=== PATIENT | male | born 1960 | race Caucasian/White ===

== ENCOUNTER → 2023-11-19 | Emergency (ER) | payer BC ==
[~2023-11-19] MED LIST: NA CHLORIDE 0.9% 1,000 ML ONE; NA CHLORIDE 0.9% 100 ML ONE; ONDANSETRON 4 MG/2 ML VIAL ONE; PANTOPRAZOLE 40 MG INJ ONE; PIPERACIL/TAZO 3.375 GM VIAL IV ONE
[2023-11-19 02:19] LABS: Hematocrit 43.7 % (39.6-49.0); Lymphocytes % 5.7 % (15.3-44.8); MCV 91.8 fL (80-100); MPV 9.5 fL (7.6-11.3); Platelets 178 thou/uL (152-406); RBC Red Blood Cell Count 4.76 M/uL (4.33-5.43)
[2023-11-19 02:39] LABS: Protime INR 1.07
[2023-11-19 02:40] LABS: Potassium 4.2 mEq/L (3.5-5.1); Protein, Total 7.9 g/dL (6.4-8.2)
[2023-11-19 05:17] LABS: Blood Morphology Comment NOT SEEN (NOT SEEN); Platelet Estimate ADEQ; White Blood Cell Scan OK (OK)
[2023-11-19 05:23] LABS: Arterial Blood Carboxyhemoglob 0.9 % (0-1.5); Blood Gas Oxyhemoglobin 93.6 % (94-97); Blood O2 Saturation 96.6 % (92-98.5)
[2023-11-19 05:30] LABS: Specific Gravity > 1.030 (1.005-1.030); Urine Bacteria None Seen /HPF (<20); Urine Bilirubin NEGATIVE (Negative); Urine Blood Negative (Negative); Urine Clarity Clear (Clear); Urine Color Yellow (Yellow); Urine Glucose 4+ (Over) (Negative); Urine Protein TRACE (Negative); Urine RBC <5 /HPF (None Seen); Urine Urobilinogen Normal (Normal); Urine pH 5.5 (5.0-7.0)
--- NOTE | 2023-11-19 06:50 | ER ---
Nurse's Notes [facility] Name: jJ Cedillo Age: 62 yrs Sex: Male : 1960 Arrival Date: 11/19/2023 Time: 01:16 Bed 6 Private MD: Diagnosis: Colitis;Lactic acidosis;Rectal bleeding;Acute kidney injury Presentation: 11/19 01:26 Chief complaint: Patient states: I had just eaten and I started having stabbing pains vc1 in my lower abdomen. I thought it was gas so I sat on the toilet and vomited. I then had a bowel movement that was watery when I was down there was a significant amount of blood. I do have a history of colon cancer, in remission. Coronavirus screen: Vaccine status: Patient reports receiving the 2nd dose of the covid vaccine. Client denies travel out of the [place] in the last 14 days. At this time, the client does not indicate any symptoms associated with coronavirus-19. Ebola Screen: Patient negative for fever greater than or equal to 101.5 degrees Fahrenheit, and additional compatible Ebola Virus Disease symptoms Patient denies exposure to infectious person. Patient denies travel to an Ebola-affected area in the 21 days before illness onset. No symptoms or risks identified at this time. Initial Sepsis Screen: Does the patient meet any 2 criteria? No. Patient's initial sepsis screen is negative. Does the patient have a suspected source of infection? Yes: Acute abdominal pain. Risk Assessment: Do you want to hurt yourself or someone else? Patient reports no desire to harm self or others. Onset of symptoms was November 19, 2023. 01:26 Method Of Arrival: Ambulatory vc1 01:26 Acuity: PERRY 3 vc1 Triage Assessment: 01:30 General: Appears in no apparent distress. uncomfortable, Behavior is calm, cooperative, vc1 appropriate for age. Pain: Complains of pain in right lower quadrant and left lower quadrant Pain does not radiate. Pain currently is 5 out of 10 on a pain scale. Also complains of diarrhea, blood in stool. EENT: No deficits noted. No signs and/or symptoms were reported regarding the EENT system. Neuro: Level of Consciousness is awake, alert, obeys commands, Oriented to person, place, time, situation, Appropriate for age Reports weakness shaking. Cardiovascular: No deficits noted. Respiratory: Airway is patent Respiratory effort is even, unlabored, Respiratory pattern is regular, symmetrical. GI: Reports lower abdominal pain, diarrhea, rectal bleeding, bloody stool, vomiting. : No deficits noted. No signs and/or symptoms were reported regarding the genitourinary system. Derm: No deficits noted. No signs and/or symptoms reported regarding the dermatologic system. Musculoskeletal: No deficits noted. No signs and/or symptoms reported regarding the musculoskeletal system. Historical: - Allergies: :29 No Known Allergies; vc1 - PMHx: :29 colon cancer; Hypertensive disorder; Diabetes mellitus; vc1 - PSHx: : right knee surgecy; colon resection; vc1 - Immunization history:: Client reports receiving the 2nd dose of the Covid vaccine. - Social history:: Smoking status: Patient denies any tobacco usage or history of. Screenin:32 [facility] ED Fall Risk Assessment (Adult) History of falling in the last 3 months, vc1 including since admission No falls in past 3 months (0 pts) Confusion or Disorientation No (0 pts) Intoxicated or Sedated No (0 pts) Impaired Gait No (0 pts) Mobility Assist Device Used No (0 pt) Altered Elimination Yes (1 pt) Score/Fall Risk Level 0 - 2 = Low Risk Oriented to surroundings, Maintained a safe environment, Educated pt \T\ family on fall prevention, incl call for assistance when getting out of bed. Abuse screen: Denies threats or abuse. Nutritional screening: No deficits noted. Tuberculosis screening: No symptoms or risk factors identified. Assessment: 02:46 Reassessment: Patient appears in no apparent distress at this time. Patient and/or jb4 family updated on plan of care and expected duration. Pain level reassessed. Patient is alert, oriented x 3, equal unlabored respirations, skin warm/dry/pink. Reports pain is tolerable. Pain was not alleviated by placing a ortiz. Continues to report a dull, 5/10, lower abdominal pain. Soar noted to the sacral area. Pt report it is from hitting the toilet seat. 04:00 Reassessment: Pt resting in bed with eyes closed, respirations are even and unlabored jb4 with no s/s of pain or distress noted. 04:59 Reassessment: Patient appears in no apparent distress at this time. Patient and/or jb4 family updated on plan of care and expected duration. Pain level reassessed. Patient is alert, oriented x 3, equal unlabored respirations, skin warm/dry/pink. RT at the bedside drawing ABG. 06:26 Reassessment: Pt resting in bed with eyes closed, respirations are even and unlabored jb4 with no s/s of pain or distress noted. 07:46 Reassessment: Patient appears in no apparent distress at this time. Patient and/or db family updated on plan of care and expected duration. Pain level reassessed. Pt is resting. respirations even and unlabored. In NAD. General: Appears in no apparent distress. comfortable, Behavior is calm, cooperative. Neuro: Level of Consciousness is awake, alert, obeys commands, Oriented to person, place, time, situation. Respiratory: Airway is patent Respiratory effort is even, unlabored, Respiratory pattern is regular, symmetrical. 08:55 Reassessment: Patient appears in no apparent distress at this time. Patient and/or db family updated on plan of care and expected duration. Pain level reassessed. Patient is alert, oriented x 3, equal unlabored respirations, skin warm/dry/pink. UPDATED BY PHYSICIAN ON PLAN. 09:58 Reassessment: REPORT GIVEN TO CHANELL, RN RECEIVING RN AT [facility]. PT GOING TO ROOM 734. Vital Signs: 01:26 BP 128 / 50; Pulse 86; Resp 15; Temp 97.8; Pulse Ox 100% ; Weight 89.36 kg; Height 6 vc1 ft. 0 in. ; Pain 5/10; 02:46 BP 123 / 53; Pulse 80; Resp 16; Pulse Ox 98% on R/A; jb4 04:00 BP 126 / 52; Pulse 80; Resp 16; Pulse Ox 98% on R/A; jb4 05:00 BP 124 / 49; Pulse 82; Resp 16; Pulse Ox 100% on R/A; jb4 06:27 BP 126 / 48; Pulse 80; Resp 16; Pulse Ox 99% on R/A; jb4 07:00 BP 123 / 49; Pulse 79; Resp 16; Pulse Ox 100% on R/A; db 07:30 BP 122 / 49; Pulse 79; Resp 18; Pulse Ox 99% on R/A; db 08:00 BP 122 / 46; Pulse 81; Resp 18; Pulse Ox 99% on R/A; db 08:30 BP 112 / 40; Pulse 83; Resp 16; Pulse Ox 100% on R/A; db 09:00 BP 117 / 43; Pulse 80; Resp 16; Pulse Ox 97% on R/A; db 01:26 Body Mass Index 26.72 (89.36 kg, 182.88 cm) vc1 01:26 Pain Scale: Adult vc1 ED Course: 01:21 Patient arrived in ED. gm2 01:29 Triage completed. vc1 01:30 Arm band placed on left wrist. vc1 01:46 Rosemary Choi is Attending Physician. ci 02:40 Ortiz cath inserted, using sterile technique, 16 Fr., by ny, balloon inflated, to oe gravity drainage, returned Patient tolerated well. 03:20 Inserted saline lock: 20 gauge in left forearm, using aseptic technique. Blood km8 collected. 03:28 CT Abdomen - Angio In Process Unspecified. EDMS 03:28 Pelvis Angio In Process Unspecified. EDMS 05:08 Manjeet Muller, JUAN is Primary Nurse. jb4 06:48 Rosemary Choi is Hospitalizing Provider. ci 06:48 Hospitalizing Provider role handed off by Rosemary Choi ci 06:48 Litzy Taveras MD is Hospitalizing Provider. ci 08:07 Attending Physician role handed off by Rosemary Choi rt 08:07 Juan Graham MD is Attending Physician. rt 08:19 Trauma Team called [facility] due to capacity. sp 08:32 called [facility] talked to [facility]. sp 08:51 called [facility] for transfer. talked with Garima. sp 09:[address] Alex De La Cruz accepted pt [id number] admin approval from Amee Delcid RN to [facility] bed 734 report number [phone]. 10:21 called [facility] for Transfer to [facility]. sp Administered Medications: 02:30 Drug: NS 0.9% IV 1000 ml IV at 1 bolus Per protocol; 1000 mL bolus Route: IV; Rate: 1 jb4 bolus; Site: right antecubital; 02:30 Drug: Ondansetron IVP 4 mg IVP once; over 2 minutes Route: IVP; Site: right antecubital;jb4 03:54 Follow up: Response: No adverse reaction km8 02:30 Drug: Pantoprazole IVP 40 mg IVP once Route: IVP; Site: right antecubital; jb4 03:54 Follow up: Response: No adverse reaction km8 02:38 Not Given (Duplicate Order): ns 0.9% 1000 ml IV at 1000 ml once ci 04:00 Drug: Piperacillin-Tazobactam IVPB 3.375 grams IVPB once over 60 mins; (mix in NS 100 jb4 mL) Route: IVPB; Infused Over: 60 mins; Site: right antecubital; Medication: 01:32 VIS not applicable for this client. vc1 Output: 09:38 Urine: 1400ml (Ortiz); Total: 1400ml. db Outcome: 06:49 Decision to Hospitalize by Provider. ci 09:18 ER care complete, transfer ordered by MD. rt 10:38 Patient left the ED. cp4 Signatures: Dispatcher [employer] EDMS Liza Hinson James, RN RN jb4 Nas Delatorre Vanessa RN RN vc1 Soraya Vargas RN RN db Juan Graham MD MD rt Nereida Calloway cp4 Rosemary Choi Ginger gm2 Brooke Monaco, RN RN km8 Corrections: (The following items were deleted from the chart) 06:27 04:00 Reassessment: Pt resting in bed with eyes closed, respirations are even and jb4 unlabored with no s/s of pain or distress noted. jb4 07:03 02:46 Reassessment: Patient appears in no apparent distress at this time. Patient jb4 and/or family updated on plan of care and expected duration. Pain level reassessed. Patient is alert, oriented x 3, equal unlabored respirations, skin warm/dry/pink. Reports pain is tolerable. Pain was not alleviated by placing a ortiz. Continues to report a dull, 5/10, lower abdominal pain jb4
--- NOTE | 2023-11-19 06:50 | EDPHYS ---
Physician Documentation [facility] Name: Jj Cedillo Age: 62 yrs Sex: Male : 1960 Arrival Date: 11/19/2023 Time: 01:16 Bed 6 Private MD: ED Physician Juan Graham HPI: 11/19 06:03 This 62 yrs old Male presents to ER via Ambulatory with complaints of Rectal Bleeding, ci Weakness, SHAKES. 06:03 Patient is a 62-year-old male with PMH diabetes, hypertension, colonic CA who presents ci with lower abdominal pain, rectal bleeding that began this evening. Pain is described as cramping, stabbing, nonradiating, intermittent. Patient had endorses associated bright red blood per rectum when he had a bowel movement. Endorses diarrhea, nausea and 1 episode of vomiting. He endorses gross blood in toilet bowl, patient concerned about possible colon cancer as he has a history and is in remission. Historical: - Allergies: 01:29 No Known Allergies; vc1 - PMHx: 01:29 colon cancer; Hypertensive disorder; Diabetes mellitus; vc1 - PSHx: 01:29 right knee surgecy; colon resection; vc1 - Immunization history:: Client reports receiving the 2nd dose of the Covid vaccine. - Social history:: Smoking status: Patient denies any tobacco usage or history of. ROS: 06:08 Constitutional: Negative for chills, fatigue, fever, ci 06:08 Abdomen/GI: Positive for abdominal pain, nausea, vomiting, and diarrhea, rectal bleeding, Exam: 06:08 Constitutional: This is a well developed, well nourished patient who is awake, alert, ci and in no acute distress. Head/Face: Normocephalic, atraumatic. Eyes: Pupils equal round and reactive to light, extra-ocular motions intact. Lids and lashes normal. Conjunctiva and sclera are non-icteric and not injected. Cornea within normal limits. Periorbital areas with no swelling, redness, or edema. ENT: Nares patent. No nasal discharge, no septal abnormalities noted. Tympanic membranes are normal and external auditory canals are clear. Oropharynx with no redness, swelling, or masses, exudates, or evidence of obstruction, uvula midline. Mucous membranes moist. Neck: Trachea midline, no thyromegaly or masses palpated, and no cervical lymphadenopathy. Supple, full range of motion without nuchal rigidity, or vertebral point tenderness. No Meningismus. Chest/axilla: Normal chest wall appearance and motion. Nontender with no deformity. No lesions are appreciated. Cardiovascular: Regular rate and rhythm with a normal S1 and S2. No gallops, murmurs, or rubs. Normal PMI, no JVD. No pulse deficits. Respiratory: Lungs have equal breath sounds bilaterally, clear to auscultation and percussion. No rales, rhonchi or wheezes noted. No increased work of breathing, no retractions or nasal flaring. Abdomen/GI: Soft with normal bowel sounds. No distension or tympany. No guarding or rebound. Mild generalized tenderness to palpation, no rebound tenderness or guarding. Rectal exam performed with Dominik MARTINEZ as my chaprone, stg 2 sacral ulcer noted, gross blood on exam, hemorrhoids, anal fissure Back: No spinal tenderness. No costovertebral tenderness. Full range of motion. Skin: Warm, dry with normal turgor. Normal color with no rashes, no lesions, and no evidence of cellulitis. MS/ Extremity: Pulses equal, no cyanosis. Neurovascular intact. Full, normal range of motion. Neuro: Awake and alert, GCS 15, oriented to person, place, time, and situation. Cranial nerves II-XII grossly intact. Motor strength 5/5 in all extremities. Sensory grossly intact. Cerebellar exam normal. Normal gait. Psych: Awake, alert, with orientation to person, place and time. Behavior, mood, and affect are within normal limits. Vital Signs: 01:26 BP 128 / 50; Pulse 86; Resp 15; Temp 97.8; Pulse Ox 100% ; Weight 89.36 kg; Height 6 vc1 ft. 0 in. ; Pain 5/10; 02:46 BP 123 / 53; Pulse 80; Resp 16; Pulse Ox 98% on R/A; jb4 04:00 BP 126 / 52; Pulse 80; Resp 16; Pulse Ox 98% on R/A; jb4 05:00 BP 124 / 49; Pulse 82; Resp 16; Pulse Ox 100% on R/A; jb4 06:27 BP 126 / 48; Pulse 80; Resp 16; Pulse Ox 99% on R/A; jb4 07:00 BP 123 / 49; Pulse 79; Resp 16; Pulse Ox 100% on R/A; db 07:30 BP 122 / 49; Pulse 79; Resp 18; Pulse Ox 99% on R/A; db 08:00 BP 122 / 46; Pulse 81; Resp 18; Pulse Ox 99% on R/A; db 08:30 BP 112 / 40; Pulse 83; Resp 16; Pulse Ox 100% on R/A; db 09:00 BP 117 / 43; Pulse 80; Resp 16; Pulse Ox 97% on R/A; db 01:26 Body Mass Index 26.72 (89.36 kg, 182.88 cm) vc1 01:26 Pain Scale: Adult vc1 MDM: 01:50 Patient medically screened. ci 03:30 Differential diagnosis: hemorrhoids, fissure, GIB, malignancy, colitis, sepsis, DKA. ci 03:30 Care significantly affected by the following chronic conditions: Diabetes, ci Hypertension. ED course: Patient presents with rectal bleeding, abdominal pain. CTA abdo/plevis shows no active bleed, imaging concerning for colitis. Noted to have leukocytosis, lactic acidosis, empirically covered with zosyn, will recheck lactate. 04:11 Awaiting: labs results, CT scan results. ci 05:35 Awaiting: CT scan results, . ci 06:50 Data reviewed: vital signs, nurses notes, lab test result(s), CBC, electrolytes, ci hepatic panel, urinalysis, radiologic studies, CT scan. Care significantly affected by the following Social Determinants of Health: Misuse of alcohol and/or drugs. 11/19 01:48 Order name: CBC with Diff; Complete Time: 05:33 ci 11/19 02:39 Interpretation: Abnormal: WBC 17.60. ci 11/19 01:48 Order name: CMP; Complete Time: 03:21 ci 11/19 03:23 Interpretation: Abnormal: CRE 1.99; GLUC 311; ANION GAP 17.2. ci 11/19 01:48 Order name: Lipase; Complete Time: 03:21 ci 11/19 01:49 Order name: Type And Screen; Complete Time: 03:23 ci 11/19 01:49 Order name: PT-INR; Complete Time: 03:21 ci 11/19 01:49 Order name: Ptt, Activated; Complete Time: 03:21 ci 11/19 03:22 Order name: Lactate w/ 2H reflex if indic.; Complete Time: 04:34 ci 11/19 04:34 Interpretation: Abnormal: LAC 2.4. ci 11/19 03:22 Order name: Blood Culture Adult (2) ci 11/19 03:23 Order name: ABG; Complete Time: 06:28 ci 11/19 04:36 Order name: Urinalysis w/ reflexes; Complete Time: 05:33 ci 11/19 05:18 Order name: CBC Smear Scan; Complete Time: 05:33 EDMS 11/19 07:16 Order name: Lactate Sepsis 2 HR Follow-up; Complete Time: 07:48 EDMS 11/19 07:43 Order name: ABO/RH no charge; Complete Time: 07:48 EDMS 11/19 02:39 Order name: CT Abdomen - Angio ci 11/19 02:46 Order name: Pelvis Angio EDMS 11/19 01:48 Order name: IV Saline Lock; Complete Time: 01:55 ci 11/19 01:48 Order name: Labs collected and sent; Complete Time: 01:55 ci Administered Medications: 02:30 Drug: NS 0.9% IV 1000 ml IV at 1 bolus Per protocol; 1000 mL bolus Route: IV; Rate: 1 jb4 bolus; Site: right antecubital; 02:30 Drug: Ondansetron IVP 4 mg IVP once; over 2 minutes Route: IVP; Site: right antecubital;jb4 03:54 Follow up: Response: No adverse reaction km8 02:30 Drug: Pantoprazole IVP 40 mg IVP once Route: IVP; Site: right antecubital; jb4 03:54 Follow up: Response: No adverse reaction km8 02:38 Not Given (Duplicate Order): ns 0.9% 1000 ml IV at 1000 ml once ci 04:00 Drug: Piperacillin-Tazobactam IVPB 3.375 grams IVPB once over 60 mins; (mix in NS 100 jb4 mL) Route: IVPB; Infused Over: 60 mins; Site: right antecubital; Disposition Summary: 11/19/23 09:18 Transfer Ordered Notes: Transfer Location: [facility] rt Reason: Higher level of care rt Condition: Stable(11/19/23 09:18) rt Problem: new(11/19/23 09:18) rt Symptoms: are unchanged(11/19/23 09:18) rt Accepting Physician: (11/19/23 10:38) [email or web address] Diagnosis - Colitis rt - Lactic acidosis rt - Rectal bleeding rt - Acute kidney injury rt Forms: - Medication Reconciliation Form rt - SBAR form rt Signatures: Dispatcher [employer] EDMS Manjeet Muller RN RN jb4 Zayda Mills RN RN vc1 Juan Graham MD MD rt Nereida Calloway cp4 Rosemary Choi ci Brooke Monaco RN km8 Corrections: (The following items were deleted from the chart) 02:46 01:48 Abdomen Pelvis W Con+CT.RAD.BRZ ordered. EDMS EDMS 03:23 03:21 Abnormal: CRE 1.99. ci ci 06:08 06:03 Patient is a 62-year-old male with PMH diabetes, hypertension, colonic CA who ci presents with rectal bleeding that began this evening. Patient reports he was sitting on the commode, straining to have a bowel movement and had. ci 06:10 06:03 Patient is a 62-year-old male with PMH diabetes, hypertension, colonic CA who ci presents with rectal bleeding that began this evening. Patient reports he was sitting on the commode, straining to have a bowel movement and had. ci 09:14 06:49 Inpatient Admission ci rt 09:14 06:49 Litzy Taveras ci rt 09:14 06:49 Telemetry/MedSurg (Inpatient) ci rt 09:14 06:49 Stable ci rt 09:14 06:49 new ci rt 09:14 06:49 have improved ci rt 09:14 06:49 Standard ci rt 09:14 06:49 ci rt 09:14 06:49 Infectious gastroenteritis and colitis, unspecified ci rt 09:14 06:50 Acute kidney failure, unspecified ci rt 10:38 09:18 rt cp4
[2023-11-19 11:16] VITALS: TEMP 97.8
[2023-11-19 11:23] VITALS: BP 117/43; O2SAT 97
--- NOTE | 2023-11-20 12:14 | RAD REPORT ---
EXAM DESCRIPTION: CT - Abdomen Angio - 11/19/2023 7:21 am CLINICAL HISTORY: 62 years, Male, GI BLEED COMPARISON: None TECHNIQUE: Contrast-enhanced images of the abdomen were performed utilizing 3 mm slight thickness at 3 mm interval reconstruction from the lung bases to the ischial tuberosities after the administratio n of IV contrast. In addition multiplanar reformats in the coronal and sagittal plane were obtained and reviewed. An individualized dose optimization technique, Automated Exposure Control, was utilized for the perfo rmed procedure. FINDINGS: Lung bases: The lung bases demonstrate to be clear. Liver: The liver demonstrated presence of decreased attenuation corresponding to mild fatty infiltrat ion. Gallbladder: The gallbladder demonstrate to be normal. Adrenal glands: The adrenal glands demonstrate to be normal. Pancreas: The pancreas demonstrate to be normal. Spleen: The spleen demonstrate to be within normal limits. Kidneys: The kidneys demonstrate normal uptake of contrast media. There is no evidence for nephroli thiasis and/or hydronephrosis. There are no significant cystic lesions. GI: Grossly the unopacified stomach, visualized portions of the small bowel demonstrate to be within normal limits. No evidence for bowel dilatation and/or free air. There are post surgical changes with in the small bowel right lower quadrant area. No evidence for significant bowel obstruction. The appe ndix is unremarkable. There is questionable underdistention and/or abnormal mucosal thickening of the transverse colon and portions of the proximal descending colon for which the possibility of mild tamika terial colitis could be of consideration. No definitive abnormal mucosal enhancement within the visua lized portions of the large and small bowel. Abdominal aorta: The aorta demonstrated presence of minimal atherosclerotic disease. There is normal enhancement of the abdominal aorta. Celiac trunk, superior mesenteric artery inferior mesenteric jeri ry demonstrate to be patent with no evidence for significant occlusion and/or stenosis. There are sin gle bilateral renal arteries with no significant stenosis Retroperitoneum: There is no abdominal retroperitoneal lymphadenopathy. There is no evidence for abdo rambo ascites and/or abnormal fluid collections. Bones: The bony structures/lumbar spine demonstrate to be within normal limits. Soft tissues: The rest of the soft tissue and bony structures are within normal limits. IMPRESSION: Questionable underdistention and/or abnormal mucosal thickening of the transverse colon and portions of the proximal descending colon for which the possibility of mild bacterial colitis cou ld be of consideration. No definitive abnormal mucosal enhancement and/or extravasation of contrast within the visualized por tions of the large and small bowel. Mild fatty infiltration of the liver. Electronically signed by: Jj Newton MD 11/19/2023 04:09 AM PULL OVER MACHINE OPERATOR Due to temporary technical issues with the PACS/Fluency reporting system, reports are being signed by the in house radiologists without review as a courtesy to insure prompt reporting. The interpreting radiologist is fully responsible for the content of the report.
--- NOTE | 2023-11-20 12:20 | RAD REPORT ---
EXAM DESCRIPTION: CT - Pelvis Angio - 11/19/2023 7:21 am CLINICAL HISTORY: 62 years, Male, ABD PAIN COMPARISON: None TECHNIQUE: Multiple transaxial tomograms of the distal aorta and iliac arteries were performed utili zing 3 mm slice thickness at 3 mm interval reconstruction from the lung bases to the ischial tuberosi ties, before and after the administration of large bolus of IV contrast for complete opacification of the abdominal aorta and iliac arteries. 2-D and 3-D multiplanar reformats, volume rendering technique and maximum intensity projection images were generated and reviewed. An individualized dose optimization technique, Automated Exposure Control, was utilized for the perfo rmed procedure. FINDINGS: Aorta/iliac arteries: The distal abdominal aorta demonstrate to be unremarkable. There is minimal atheromatous plaque at th e aortic bifurcation. Bilateral iliac arteries demonstrate to be patent. There is minimal peripheral plaque within the internal iliac arteries bilaterally. Visualized portions of the inferior mesenteric artery demonstrate to be grossly unremarkable Pelvis: GI: Visualized portions of the small bowel and large bowel demonstrate to be within normal limits. No evidence for bowel dilatation and/or free air. There is status post surgical changes within the dist al rectum with the small amount of presacral haziness. There is no evidence for active extravasation of contrast and/or active bleeding. : The urinary bladder demonstrate demonstrate a presence of a Diaz catheter. Genitalia: There is slight prominence of the prostate gland perhaps related to BPH. Retroperitoneum: There is no pelvic retroperitoneal lymphadenopathy. There is no evidence for pelvic ascites and/or abnormal fluid collections. Bones: Visualized portions of the pelvic bones are unremarkable. Soft tissues: The rest of the soft tissue and bony structures are within normal limits. IMPRESSION: Postsurgical changes within the distal rectum with the small amount of presacral hazines s. No evidence for active extravasation of contrast and/or active bleeding. Diaz catheter in the urinary bladder. Slight prominence of the prostate gland perhaps related to BPH. Electronically signed by: Jj Newton MD 11/19/2023 03:58 AM STRAIGHT SLICING MACHINE OPERATOR Due to temporary technical issues with the PACS/Fluency reporting system, reports are being signed by the in house radiologists without review as a courtesy to insure prompt reporting. The interpreting radiologist is fully responsible for the content of the report.
== END ==
LOC: ER 01:16
DX: K52.9 Noninfective gastroenteritis and colitis, unspecified (principal); E87.20 Acidosis, unspecified; N17.9 Acute kidney failure, unspecified; Z85.038 Personal history of other malignant neoplasm of large intestine; I10 Essential (primary) hypertension; E11.9 Type 2 diabetes mellitus without complications
CPT/HCPCS: 87040 ×2; 85025; 81001; 36415; 86900; 86850; 85610; 86901; 83605 ×2; 85730; 83690; 80053; 72191; 74175; 82805; 51702; 96375; 96374; 99284; 36600; Q9967; J2543; C9113; J2405; J7030